=== PATIENT | male | born 1985 | race Caucasian/White ===

== ENCOUNTER 2021-02-16 08:57 | Emergency (ER) | payer OTHER, SELFPAY ==
[2021-02-16 09:16] VITALS: BP 135/86; PULSE 92; RESP 16; TEMP 37.3; O2SAT 98
--- NOTE | 2021-02-16 09:39 | ED.URI ---
HPI - URI/Sore Throat General Chief Complaint: Upper Respiratory Infection Stated Complaint: Flu Time Seen by Provider: 02/16/21 09:39 Source: patient and RN notes reviewed Mode of arrival: ambulatory Limitations: no limitations History of Present Illness HPI Narrative: 35-year-old male presents with concern for 1 week history of body aches, intermittent fever, cough, sore throat, eye and nasal drainage. He reports he has been vaccinated for Covid, has not had a flu vaccine. Patient has a tracheostomy that he has had from , denies any significant medical history. Reports he cannot take Benadryl because it dries out his throat too much. Reports he is taken NyQuil and Excedrin with little relief. Reports his kids and have had similar symptoms but they are getting better. MD elicited complaint: fever Related Data Allergies Allergy/AdvReac Type Severity Reaction Status Date / Time No Known Allergies Allergy Unknown Unverified 07/15/18 08:05 Review of Systems Review of Systems: CONSTITUTIONAL: Denies malaise, chills, sweats, or fever. EYES: Denies visual changes, redness, or discharge. ENT: Reports rhinorrhea, congestion, otalgia and sore throat. CARDIOVASCULAR: Denies chest pain, palpitations, or edema. RESPIRATORY: Reports cough. Denies dyspnea. GASTROINTESTINAL: Denies abdominal pain, nausea, vomiting, diarrhea SKIN: Denies rash or itching. MUSCULOSKELETAL: Denies myalgia. NEUROLOGIC: Denies headache. All systems reviewed & are unremarkable except as noted in HPI and below PMFSH Comments At time of signature, agree with nursing past medical, surgical, social and family history. There is no relevant family history pertinent to the presenting complaint Exam Narrative: GENERAL: Well-appearing, well-nourished, and in no acute distress. HEAD: Normocephalic EYES: PERRLA, conjunctivae clear ENT: Nares clear, turbinates edematous and erythematous, clear discharge. Mucous membranes moist. TM pearly hopkins with dull light reflex bilaterally; no tragal tenderness. Oropharynx erythematous without lesions. Tonsils enlarged and without exudate, no drooling, no hoarseness, no trismus, uvula midline. NECK: Supple. No lymphadenopathy CHEST: Clear to auscultation, breath sounds equal. No wheezing, rhonchi, rales, or stridor. No respiratory distress, speaks in full sentences. HEART: Regular rate and rhythm. No murmur heard. SKIN: Warm, dry, no rash. NEURO: Alert and oriented x3. PSYCH: Normal mood and affect Course Course Emergency Course: Patient is aware of diagnosis, understands and agrees to treatment plan. Anticipatory guidance given. Patient agrees to follow-up as directed and is aware of reasons to seek care at the emergency department. Portions of this record may have been created with voice recognition software Vital Signs Vital signs: Vital Signs Temperature 99.1 F 02/16/21 09:16 Pulse Rate 92 02/16/21 09:16 Respiratory Rate 16 02/16/21 09:16 Blood Pressure 135/86 02/16/21 09:16 Pulse Oximetry 98 02/16/21 09:16 Temperature 99.1 F 02/16/21 09:16 Pulse Rate 92 02/16/21 09:16 Respiratory Rate 16 02/16/21 09:16 Blood Pressure 135/86 02/16/21 09:16 Pulse Oximetry 98 02/16/21 09:16 Reviewed. Pt has been instructed to follow up with his primary care provider within the next week regarding his elevated blood pressure today. MDM - URI/Sore Throat MDM Narrative Medical decision making narrative: Differential diagnosis considered: [place] virus, strep pharyngitis, allergic rhinitis, upper respiratory tract infection, sinusitis, rhinosinusitis, nasopharyngitis. viral pharyngitis, otitis media, otitis externa, pneumonia, bronchitis, viral cough syndrome, viral syndrome, and influenza. Exam findings show no acute concerns or changes; patient is non-toxic appearing and is in no distress. Patient is appropriate for outpatient treatment and follow-up. Lab Data Attestation: I reviewed the patient's lab
== END 2021-02-16 10:02 | disposition home or self-care (01) ==
PROVIDERS: Emergency Provider Nurse Practitioner; PCP Internal Medicine
DX: J02.0 Streptococcal pharyngitis (principal); R05.9 Cough, unspecified; Z20.822 Contact with and (suspected) exposure to COVID-19
CPT/HCPCS: 87426; 87804; 87880; 99213; C9803; G0463

== ENCOUNTER 2023-04-26 15:20 | Emergency (ER) | payer OTHER, SELFPAY ==
[2023-04-26 15:30] VITALS: BP 132/84; PULSE 86; RESP 20; TEMP 37.3; O2SAT 99
[2023-04-26 15:40] VITALS: BP 132/84; PULSE 86; RESP 20; TEMP 37.3; O2SAT 99
--- NOTE | 2023-04-26 15:59 | ED.EYEPROB ---
HPI - Eye Problem General Chief complaint: Eye Problems Stated complaint: left eye stye Time Seen by Provider: 04/26/23 15:50 Source: patient, RN notes reviewed and old records reviewed Mode of arrival: ambulatory Limitations: no limitations History of Present Illness HPI Narrative: 38 year old male who presents to [facility] care with complaints of 2 styes to the left upper eye lid for the past 2 weeks with worsening symptoms and discomfort. Patient does wear contact lens and was instructed he will not be able to wear left contact while using prescribed eye medications till completed. Patient reports that he had similar area of styes on his left upper eyelid in December and received treatment chief complaint: other (2 styes on left upper eyelid) Onset (ago): week(s) (2) Location: left eye (upper eyelid) Treatments Prior to Arrival: other (warm compresses) Related Data Home Medications Medication Instructions Recorded Confirmed ferrous sulfate 325 mg (65 mg 325 mg PO DAILY 04/26/23 04/26/23 iron) tablet Allergies Allergy/AdvReac Type Severity Reaction Status Date / Time No Known Allergies Allergy Unknown Verified 04/26/23 15:39 Review of Systems Review of Systems: CONSTITUTIONAL: Denies fever, chills, or sweats. EYES: Denies visual changes. Reports redness with stye formation along left upper eyelid lash line, no redness to sclera or swelling of eye, patient denies any sharp pain or visual changes ENT: Denies rhinorrhea, congestion, sore throat, or otalgia. CARDIOVASCULAR: Denies chest pain, palpitations, or edema. RESPIRATORY: Denies cough or dyspnea. SKIN: Denies rash or itching. 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 There is no relevant family history pertinent to the presenting complaint Exam Narrative: GENERAL: Well-appearing, well-nourished, and in no acute distress. HEAD: Normocephalic, atraumatic. EYES: PERRLA and EOMI. Upper and lower eyelids unremarkable right eye Left upper eye lid has red styes X2 noted along upper eyelid lash line area no drainage. No periorbital cellulitis noted. Sclera and conjunctivae clear ENT: Nares clear, no rhinorrhea or epistaxis. Mucous membranes moist. 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 CHEST: Clear to auscultation. No respiratory distress. HEART: Regular rate and rhythm. No murmur heard. Normal peripheral pulses. SKIN: Warm, dry, no rash. NEURO: No focal deficits. Alert and oriented x3. Course Course Emergency Course: Patient is aware of diagnosis, understands and agrees to treatment plan. Anticipatory guidance given. Patient agrees to follow-up as directed and is aware of reasons to seek care at the emergency department. Portions of this record may have been created with voice recognition software Level of Care: Express Care Visit Vital Signs Vital signs: Vital Signs Temperature 37.3 C 04/26/23 15:30 Pulse Rate 86 04/26/23 15:30 Respiratory Rate 04/26/23 15:30 Blood Pressure 132/84 04/26/23 15:30 Pulse Oximetry 99 04/26/23 15:30 Oxygen Delivery Room Air 04/26/23 15:30 Temperature 37.3 C 04/26/23 15:40 Pulse Rate 86 04/26/23 15:40 Respiratory Rate 20 04/26/23 15:40 Blo
== END 2023-04-26 16:12 | disposition home or self-care (01) ==
PROVIDERS: Emergency Provider Registered Nurse
DX: H00.014 Hordeolum externum left upper eyelid (principal); Z93.0 Tracheostomy status
CPT/HCPCS: 99213; G0463

== ENCOUNTER 2023-06-20 18:09 | Emergency (ER) | payer OTHER, SELFPAY ==
[2023-06-20 18:20] VITALS: BP 145/97; PULSE 80; RESP 16; TEMP 36.6; O2SAT 99
--- NOTE | 2023-06-20 18:20 | ED.WOUNDLAC ---
HPI - Wound/Laceration General Chief Complaint: Wound/Laceration Stated Complaint: Right leg lac Time Seen by Provider: 06/20/23 18:20 Source: patient, RN notes reviewed and old records reviewed Mode of arrival: ambulatory Limitations: no limitations History of Present Illness HPI narrative: 38 year old male presents to [facility] care with complaints of scratching his right lateral lower leg on a piece of jose metal about 2 hours ago. Patient has superficial abrasion noted to his right lower leg with no bleeding noted. Patient is concerned since the metal was jose and his tetanus shot needs updated. Onset (ago): hour(s) (2 hours ago) Location: other Extremity Location: Right: lower leg (lateral aspect) Patient tetanus UTD: No Related Data Home Medications Medication Instructions Recorded Confirmed ferrous sulfate 325 mg (65 mg 325 mg PO DAILY 04/26/23 04/26/23 iron) tablet Allergies Allergy/AdvReac Type Severity Reaction Status Date / Time No Known Allergies Allergy Unknown Verified 04/26/23 15:39 Review of Systems Review of Systems: CONSTITUTIONAL: Denies fever, chills, or sweats. EYES: Denies visual changes, redness, or discharge. ENT: Denies rhinorrhea, congestion, sore throat, or otalgia. CARDIOVASCULAR: Denies chest pain, palpitations, or edema. RESPIRATORY: Denies cough or dyspnea. GASTROINTESTINAL: Denies abdominal pain, nausea, vomiting, or diarrhea. GENITOURINARY: Denies dysuria or hematuria. SKIN: Denies rash or itching.superficial abrasion to right lower leg after scrapping it on jose metal MUSCULOSKELETAL: Denies back pain, joint pain, or myalgia. NEUROLOGIC: Denies headache, numbness, or weakness. PSYCHIATRIC: Denies anxiety or depression. 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 There is no relevant family history pertinent to the presenting complaint Exam Narrative: GENERAL: Well-appearing, well-nourished, and in no acute distress. HEAD: Normocephalic, atraumatic. EYES: PERRLA and EOMI. ENT: Nares clear, no rhinorrhea or epistaxis. Mucous membranes moist. NECK: Supple. no swelling tracheostomy tube in place CHEST: Clear to auscultation. No respiratory distress.SAO2 99% on room air HEART: Regular rate and rhythm. No murmur heard. Normal peripheral pulses. ABDOMEN: Soft, nontender, nondistended, normal active bowel sounds. EXTREMITIES: Normal range of motion. No edema. SKIN: Warm, dry, no rash. superficial abrasion to right lower leg no active bleeding noted,cleansed with soap and saline bandaide applied NEURO: No focal deficits. Alert and oriented x3. Course Course Emergency Course: Patient is aware of diagnosis, understands and agrees to treatment plan.? Anticipatory guidance given.? Patient agrees to follow-up as directed and is aware of reasons to seek care at the emergency department. Portions of this record may have been created with voice recognition software Level of Care: Express Care Visit Vital Signs Vital signs: Vital Signs Temperature 36.6 C 06/20/23 18:20 Pulse Rate 80 06/20/23 18:20 Respiratory Rate 16 06/20/23 18:20 Blood Pressure 145/97 H 06/20/23 18:20 Pulse Oximetry 99 06/20/23 18:20 Oxygen Delivery Room Air 06/20/23 18:20 Temperature 36.6 C 06/20/23 18:20 Pulse Rate 80 06/20/23 18
[2023-06-20] MEDS: TETANUS,DIPHTHERIA,AC PERTUSSIS ADULT (0.5 ML) BOOSTRIX IM (18:47)
== END 2023-06-20 19:08 | disposition home or self-care (01) ==
PROVIDERS: Emergency Provider Registered Nurse
DX: S80.811A Abrasion, right lower leg, initial encounter (principal); W22.8XXA Striking against or struck by other objects, initial encounter; Z23 Encounter for immunization; Z93.0 Tracheostomy status
CPT/HCPCS: 90471; 90715; 99212; G0463

== ENCOUNTER 2023-07-17 14:06 | Emergency (ER) | payer OTHER, SELFPAY ==
--- NOTE | ~2023-07-17 | XR_ITS ---
EXAMINATION: XR lumbar spine 2-3V DATE: 07/17/2023 14:33 INDICATION: Mid back pain. TECHNIQUE: 3 views of lumbar spine were obtained. COMPARISON: None. FINDINGS: Bone alignment is normal. There are Schmorl's nodes at multiple levels. There is mildly dec reased disc height at L3-L4 and moderately decreased disc height at L5-S1. There is multilevel mild f acet joint osteoarthritis. IMPRESSION: 1. Moderate lower lumbar spondylosis. Reviewed, dictated and finalized at location E.
--- NOTE | 2023-07-17 14:23 | ED.BACK ---
HPI - Back Pain/Injury General Chief Complaint: Back Pain/Injury Stated Complaint: Back Pain History of Present Illness HPI Narrative: PATIENT PRESENTS WITH LOW BACK PAIN. PATIENT DENIES ANY NUMBNESS OR TINGLING NO SADDLE ANESTHESIA NO BOWEL OR BLADDER PROBLEMS. PATIENT DOES NOT RECALL ANY INJURY AND STATES HE IS NOT LIFT ANY HEAVY OBJECTS. Related Data Home Medications Medication Instructions Recorded Confirmed ferrous sulfate 325 mg (65 mg 325 mg PO DAILY 04/26/23 04/26/23 iron) tablet Allergies Allergy/AdvReac Type Severity Reaction Status Date / Time No Known Allergies Allergy Unknown Verified 07/17/23 14:20 Review of Systems Review of Systems: CONSTITUTIONAL: DENIES FEVER, CHILLS, OR SWEATS. EYES: DENIES VISUAL CHANGES, REDNESS, OR DISCHARGE. ENT: DENIES RHINORRHEA, CONGESTION, SORE THROAT, OR OTALGIA. CARDIOVASCULAR: DENIES CHEST PAIN, PALPITATIONS, OR EDEMA. RESPIRATORY: DENIES COUGH OR DYSPNEA. GASTROINTESTINAL: DENIES ABDOMINAL PAIN, NAUSEA, VOMITING, OR DIARRHEA. GENITOURINARY: DENIES DYSURIA OR HEMATURIA. SKIN: DENIES RASH OR ITCHING. MUSCULOSKELETAL: DENIES BACK PAIN, JOINT PAIN, OR MYALGIA. NEUROLOGIC: DENIES HEADACHE, NUMBNESS, OR WEAKNESS. PSYCHIATRIC: DENIES ANXIETY OR DEPRESSION. 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 HEAD: NORMOCEPHALIC, ATRAUMATIC. EYES: PERRLA AND EOMI. ENT: NARES CLEAR, NO RHINORRHEA OR EPISTAXIS. MUCOUS MEMBRANES MOIST. NECK: SUPPLE. CHEST: CLEAR TO AUSCULTATION. NO RESPIRATORY DISTRESS. HEART: REGULAR RATE AND RHYTHM. NO MURMUR HEARD. NORMAL PERIPHERAL PULSES. ABDOMEN: SOFT, NONTENDER, NONDISTENDED, NORMAL ACTIVE BOWEL SOUNDS. EXTREMITIES: NORMAL RANGE OF MOTION. NO EDEMA.SPINE MIDLINE. NO CURVATURE APPARENT. NO NOVERTEBRAL POINT SPECIFIC TENDERNESS. NO DEFORMITY. NO STEP-OFFS. NORMAL LE STRENGTH BILATERALLY. NORMAL LE SENSATION BILATERALLY. ABLE TO WALK ON TOES AND HEELS WITH NORMAL DORSIFLEXION AND PLANTAR FLEXION STRENGTH. NO WEAKNESS OBSERVED WITH GAIT. RIGHT PARASPINAL MUSCLE TENDERNESS. RIGHT SI JOINT TENDERNESS. FLEXION AND EXTENSION ROM NORMAL, ONLY SLIGHT LIMITATION. SKIN: WARM, DRY, NO RASH. NEURO: NO FOCAL DEFICITS. ALERT AND ORIENTED X3. MORENO COMA SCALE EYE OPENING: SPONTANEOUS 4 MORENO COMA SCALE MOTOR: OBEYS COMMANDS 6 MORENO COMA SCALE VERBAL: ORIENTED 5 MORENO COMA SCALE TOTAL 15 Course Course Level of Care: Express Care Visit MDM - Back Pain/Injury Imaging Data My impression: Moderate lower lumbar spondylosis. Radiologist's impression: Moderate lower lumbar spondylosis. Discharge Plan Discharge Clinical Impression: Strain of lumbar region Patient Disposition: Home, Self-Care Condition: Stable Instructions: Low Back Strain (ED), Lower Back Exercises (ED) Additional Instructions: ICE AND HEAT TO THE AREA FOR 20-30 MINUTES GENTLE STRETCHING EXERCISES GENTLE MASSAGE CAUTION WITH LIFTING, BENDING, STOOPING, TWISTING AVOID PUSHING, PULLING TAKE MUSCLE RELAXANTS DIRECTED--CAUTION DROWSINESS AND NO DRIVING OR ALCOHOL ANTI-INFLAMMATORY MEDICINE DIRECTED--TAKE WITH FOOD HE MAY TAKE THE MUSCLE RELAXANT AND ANTI-INFLAMMATORY AT THE SAME TIME FOLLOW-UP WITH YOUR PCP IF NOT IMPROVING IN 5-7 DAYS -IF YOU HAVE ANY WORSENING OF SYMPTOMS OR ANY OTHER CONCERNS PLEASE GO TO THE ED IMMEDIATELY. Prescriptions: New cyclobenzaprine 10 mg tablet 10 mg PO B
== END 2023-07-17 14:46 | disposition home or self-care (01) ==
PROVIDERS: Emergency Provider Nurse Practitioner Family
DX: S39.012A Strain of muscle, fascia and tendon of lower back, initial encounter (principal); X58.XXXA Exposure to other specified factors, initial encounter; Z93.0 Tracheostomy status
CPT/HCPCS: 72100; 99213; G0463

== ENCOUNTER 2024-07-06 15:11 | Emergency (ER) | payer OTHER, SELFPAY ==
--- OUTSIDE RECORDS SUMMARY | 2024-07-06 15:14 | XMS_ITS | Referral Summary ---
Author Organization [facility] Address [address] [place] [address] Care Team Providers Care Senior Ui Designer Name Role Phone Rossi Denney CLAUDY Primary Care Provider [phone] Allergies No known active allergies Medications lidocaine HCl-hydrocortiso n ac 3-0.5 % cream Apply to affected area 2-3 times daily 7 g 11 2 Active hydrocortisone (ANUSOL-HC) 2.5 % rectal cream Insert into the rectum 2 (two) times a day 30 g 3 2 Active sodium chloride 0.9% 0.9 % irrigationIndica tions:Use to flush Trach Use saline bullets 5-6 times daily for trach care as needed 450 mL 3 2 Active ferrous sulfate 325 mg (65 mg of elemental iron) tabletIndication s:Iron deficiency anemia, unspecified iron deficiency anemia type TAKE 1 TABLET BY MOUTH EVERY DAY WITH BREAKFAST 30 tablet 3 4 Active Active Problems Problem Noted Date Diagnosed Date Iron deficiency anemia 06/24/2021 Overview (06/24/2021): Added automatically from request for surgery [id number] Assessment & Plan (07/14/2021 7:08 AM CDT): HPI: Condition is Acute on chronic A&P: Discussed/ordered labs, encouraged healthy, low carbohydrate lifestyle and at least 150min/week of exercise, continue on ferrous sulfate 325mg onc daily, continue f/u with Dr. Joshua CONLEY and Dr. Salmeron hematology Rectal bleeding 06/23/2021 Assessment & Plan (07/14/2021 10:09 AM CDT): HPI: Condition is Improving, now only having blood sometimes with stools, not every time and only minimal amount, much improved from previous. A&P: Discussed/ordered labs, encouraged healthy, low carbohydrate lifestyle and at least 150min/week of exercise, GI is referring pt to hemorrhoid surgeon, continue to use anusol as needed Hemorrhoids 06/23/2021 Assessment & Plan (07/14/2021 7:09 AM CDT): HPI: Condition is improving, but not at goal A&P: Discussed/ordered labs, encouraged healthy, low carbohydrate lifestyle and at least 150min/week of exercise, GI is referring pt to hemorrhoid surgeon, continue to use anusol as needed Intermittent constipation 06/23/2021 Assessment & Plan (07/14/2021 7:08 AM CDT): HPI: Condition is stable A&P: Discussed/ordered labs, encouraged healthy, low carbohydrate lifestyle and at least 150min/week of exercise, continue on stool softeners as needed Overweight with body mass in dex (BMI) of 28 to 28.9 in adult 06/08/2021 Assessment & Plan (07/14/2021 7:09 AM CDT): HPI: Condition is stable goal BMI <30 A&P: Healthy, high-protein, lower carbohydrate, lower fat lifestyle and exercise for 150min/week recommended Substitutions: Recommend tracking everything you put in your mouth on an pina like D-Share or [employer] carries a zero net carb bread If you are looking for whole potatoes, like to use in soup or new potato shape/flavor, radishes are a great replacement If you are looking for mashed potatoes, riced cauliflower in the frozen bag section are a great replacement For pasta, try using zucchini noodles, lay them out on a cookie sheet and pat dry with a tea towel to try to remove as much moisture as possible. Heat your pasta sauce on the stove and put the noodles in for 30-45 seconds. If you leave them in much longer they will become mushy [place] and/or coconut flour instead of regular flour For pizza dough, try fathead pizza dough recipe online. To get a crispy crust, bake on one side for 8-12 min, then flip over and bake on the other side for 8-12 min, then put toppings on and bake until the cheese on top of pizza melts chaffles recipe online For ice cream, try the brand Enlightened To replace coffee creamer and make it low carb, use heavy creamer with sugar free Torani sweetener For chips, try Whisps or pork rinds For yogurt, try Two Good kenyan yogurt Use Pinterest for recipe ideas. Type in low carb... Assessment & Plan (06/08/2021 12:35 PM CDT): HPI: Condition is stable goal BMI <30 A&P: Healthy, high-protein, lower carbohydrate, lower fat lifestyle and exercise for 150min/week recommended Substitutions: Recommend tracking everything you put in your mouth on an pina like D-Share or [employer] carries a zero net carb bread If you are looking for whole potatoes, like to use in soup or new potato shape/flavor, radishes are a great replacement If you are looking for mashed potatoes, riced cauliflower in the frozen bag section are a great replacement For pasta, try using zucchini noodles, lay them out on a cookie sheet and pat dry with a tea towel to try to remove as much moisture as possible. Heat your pasta sauce on the stove and put the noodles in for 30-45 seconds. If you leave them in much longer they will become mushy [place]anda and/or coconut flour instead of regular flour For pizza dough, try fathead pizza dough recipe online. To get a crispy crust, bake on one side for 8-12 min, then flip over and bake on the other side for 8-12 min, then put toppings on and bake until the cheese on top of pizza melts chaffles recipe online For ice cream, try the brand Enlightened To replace coffee creamer and make it low carb, use heavy creamer with sugar free Torani sweetener For chips, try Whisps or pork rinds For yogurt, try Two Good kenyan yogurt Use Pinterest for recipe ideas. Type in low carb... Gastroesophageal reflux dise ase with esophagitis without hemorrhage 05/29/2021 Assessment & Plan (07/14/2021 7:09 AM CDT): HPI: Condition is stable encouraged healthy diet and exercise Avoid trigger foods including: carbonated beverages, caffeine, spicy, fried foods, tomatoes, cucumbers, mint, and acidic fruits/juices like orange/lemon/grapefruit. Avoid eating/drinking anything for at least 2 hours before bed. Sleep with bed propped. Discussed increased risk of cdif , bone loss and vit B12 deficiency with alf use of PPI with pt, would like to remain on medication at this time Tracheostomy present 05/28/2021 Overview (05/28/2021): subglottal stenosis. Has had this since . Assessment & Plan (07/14/2021 10:14 AM CDT): Continue current trach care Currently pt is purchasing all trach care items online. Found out that ins will cover them with a prescription. We will work on finding a company that will supply them. We will also have pt call ins company to see what company they use. Assessment & Plan (06/08/2021 12:40 PM CDT): Continue current trach care. Assessment & Plan (05/29/2021 8:37 AM BMET): Subglottal stenosis Trach since Assessment & Plan (05/28/2021 4:23 PM BMET): Pt is stable with trach, no erythema or drainage. Resolved Problems Problem Noted Date Diagnosed Date Resolved Date Anemia of unknown etiology 06/23/2021 0 07/14/2021 Fecal occult blood test positive 06/23/2021 07/14/2021 Other hemorrhoids 06/01/2021 07/14/2021 Assessment & Plan (06/08/2021 2:53 PM CDT): Hydrocortisone with lidocaine given Constipation 05/30/2021 05/31/2021 Assessment & Plan (05/30/2021 9:28 AM BMET): Patient complaining of constipation 05/30 Stimulant laxative due to GI bleed not considered Colace 100 mg b.i.d. p.r.n. Encourage p.o. hydration Monitor GI bleed 05/29/2021 07/14/2021 Assessment & Plan (06/08/2021 12:40 PM CDT): HPI: Condition is improving, but not at goal A&P: personally reviewed hospitalization reports including labs and procedures. Pt needs to be scheduled to see hematology Dr. Salmeron and to see Dr. Lewis's office for f/u for video capsule endoscopy. Pt will need to be on ferrous sulfate 325mg daily for at least the next 6 mo. Hgb/Hct ordered today. Assessment & Plan (05/30/2021 11:14 AM BMET): 36 y.o. M nonsmoker with PMHx of HTN , congenital subglottal stenosis with trach, hemorrhoids (x20 yrs) presents to [facility] ED on 05/28/2021 with bloody stool with worsening gross rectal BRBPR bleed x 1 week. Associated with rectal pain when defecating, lightheadedness, fatigue and headaches. Naproxen daily for MARQUEZ. 05/28 patient Hb 5.4. No leukocytosis, CMP within normal limits except ALT 56 mildly elevated. Iron panel revealed iron 11 L, TIBC WNL, transferrin 3 L. On admission 5.4 hemoglobin after receiving 2 units PRBC patient's hemoglobin currently 7.6. Hematocrit started at 18.2 on admission currently 24. 05/29/21 - procedures performed EGD revealed mild esophagitis only. Flex sig to splenic flexure only grade III nonbleeding roids Per gastroenterology -Plan for colonoscopy on 06/01/2021. Dulcolax tablets 05/30 and full prep 05/31 Check CBC, B12, Folate, Celiac serology will be checked 05/31 Acute headache 05/29/2021 07/14/2021 Assessment & Plan (06/08/2021 12:40 PM CDT): HPI: Condition is improving, but not at goal A&P: personally reviewed hospitalization reports including labs and procedures. Pt needs to be scheduled to see hematology Dr. Salmeron and to see Dr. Lewis's office for f/u for video capsule endoscopy. Pt will need to be on ferrous sulfate 325mg daily for at least the next 6 mo. Hgb/Hct ordered today. Avoid NSAIDs Assessment & Plan (05/29/2021 10:31 AM BMET): Pt has had persisting MARQUEZ x 1 week duration Hb below normal value Was taking NSAID every day Received 1 unit PRBC and will receive another per GI Prn compazine Acute blood loss anemia 06/20 Assessment & Plan (06/08/2021 12:39 PM CDT): HPI: Condition is improving, but not at goal A&P: personally reviewed hospitalization reports including labs and procedures. Pt needs to be scheduled to see hematology Dr. Salmeron and to see Dr. Lewis's office for f/u for video capsule endoscopy. Pt will need to be on ferrous sulfate 325mg daily for at least the next 6 mo. Hgb/Hct ordered today. Assessment & Plan (05/31/2021 8:08 AM CDT): Patient came in with 5.4 hemoglobin after receiving 2 units PRBC patient's hemoglobin currently > 7.0. Hematocrit started at 18.2 on admission currently > 24. Guaiac-positive GI bleed - flex sigmoid revealed no active bleed Responded well to 2 units PRBC Monitor Results for SANDRA GUEVARA ( ) as of 05/31/2021 08:01 Ref. Range 05/28/2021 18:59 05/29/2021 04:28 05/29/2021 17:00 05/31/2021 04:24 Hgb Latest Ref Range: 13.0 - 17.5 g/dL 5.4 (Critical) 6.6 (L) 7.6 (L) 7.8 (L) Hct Latest Ref Range: 38.9 - 50.3 % 18.2 (L) 22.7 (L) 24.0 (L) 26.1 (L) Immunizations Immunization Administration Dates Next Due DTP 08/20/1988, 5,1983,09/15,1983 Influenza, Quadrivalent, Destinee l Culture-based MDCK, Preservative Free, Antibiotic Free, Intramuscular 03/19/2021 MMR 09/19/1992,05/31/1984 OPV 11/29/1984, 4,1983,06/30 Td, adsorbed 10/25/1997 Social History Tobacco Use Types Packs/Day Years Used Date Smoking Tobacco: Never Smokeless Tobacco: Never AUDIT-C Answer Date Recorded Q1: How often do you have a drink containing alc ohol? 2-4 times a month 05/29/2021 Q2: How many drinks containi ng alcohol do you have on a typical day when you are drinking? 1 or 2 05/29/2021 Q3: How often do you have si x or more drinks on one occasion? Never 05/29/2021 PHQ-2 Answer Date Recorded PHQ-2 Total Score (If total score is 3 or more points, staff should administer the PHQ-9) 0 07/14/2021 Personal Safety Answer Date Recorded Getting School Help Needed Not on file 04/27 Sex and Gender Information Value Date Recorded Sex Assigned at Not on file Legal Sex Male 9:22 AM CDT Gender Identity Not on file Sexual Orientation Not on file Last Filed Vital Signs Vital Sign Reading Time Taken Comments Blood Pressure 140/82 01/04/2022 3:07 PM CDT Pulse 78 01/04/2022 3:07 PM CDT Temperature 36.9 C (98.4 F) 01/04/2022 3:07 PM CDT Respiratory Rate 20 01/04/2022 3:07 PM CDT Oxygen Saturation 97% 01/04/2022 3:07 PM CDT Inhaled Oxygen Concentration - - Weight 85.1 kg (187 lb 9.6 oz) 01/04/2022 3:07 P M CDT Height 170.2 cm (5' 7 ) 01/04/2022 3:07 PM CDT Body Mass Index 29.38 01/04/2022 3:07 PM CDT Plan of Treatment Not on file [place] [employer] [place] Advance Directives For more information, please contact: [phone] * Full Code (Latest Code Status on File) Date Activated Date Inactivated Comments 06/01/2021 1:43 PM 06/01/2021 9:24 PM * Full Code Date Activated Date Inactivated Comments 05/29/2021 10:57 AM 06/01/2021 1:43 PM * Full Code Date Activated Date Inactivated Comments 05/29/2021 12:09 AM 05/29/2021 10:57 AM Care Teams Senior Ui Designer Relationship Specialty Start Date End Date Rossi Denney NP PCP - General Family Medicine 05/28/21
--- OUTSIDE RECORDS SUMMARY | 2024-07-06 15:14 | XMS_ITS | Clinical Summary ---
Author Organization [facility] Address [address] [place] [address] Care Team Providers Care Administrative Volunteer Name Role Phone Rossi Denney CLAUDY Primary Care Provider [phone]- [phone] Allergies No known active allergies Medications lidocaine [...] (06/24/2021): Added automatically from request for surgery [id number] Assessment & Plan (07/14/2021 7:08 AM CDT): [...] in your mouth on an pina like [employer] or [employer] carries a zero net carb bread [...] in much longer they will become mushy [place] and/or coconut flour instead of regular flour [...] pork rinds For yogurt, try Two Good canadian yogurt Use Pinterest for recipe ideas. Type in low carb... Assessment & Plan (06/08/2021 12:35 PM CDT): HPI: Condition is stable goal BMI <30 A&P: Healthy, high-protein, lower carbohydrate, lower fat lifestyle and exercise for 150min/week recommended Substitutions: Recommend tracking everything you put in your mouth on an pina like [employer] or [employer] carries a zero net carb bread [...] in much longer they will become mushy [place] and/or coconut flour instead of regular flour [...] pork rinds For yogurt, try Two Good canadian yogurt Use Pinterest for recipe ideas. Type [...] bone loss and vit B12 deficiency with fci use of PPI with pt, would like [...] care. Assessment & Plan (05/29/2021 8:37 AM WIRE PREPARATION WORKER): Subglottal stenosis Trach since Assessment & Plan (05/28/2021 4:23 PM WIRE PREPARATION WORKER): Pt is stable with trach, no erythema or drainage. Resolved Problems Problem Noted Date Diagnosed Date Resolved Date Anemia of unknown etiology 06/23/2021 0 07/14/2021 Fecal occult blood test positive 06/23/2021 07/14/2021 Other hemorrhoids 06/01/2021 07/14/2021 Assessment & Plan (06/08/2021 2:53 PM CDT): Hydrocortisone with lidocaine given Constipation 05/30/2021 05/31/2021 Assessment & Plan (05/30/2021 9:28 AM WIRE PREPARATION WORKER): Patient complaining of constipation 05/30 Stimulant laxative [...] today. Assessment & Plan (05/30/2021 11:14 AM WIRE PREPARATION WORKER): 36 y.o. M nonsmoker with PMHx of HTN , congenital subglottal stenosis with trach, hemorrhoids (x20 yrs) presents to [facility] ED on 05/28/2021 with bloody stool [...] NSAIDs Assessment & Plan (05/29/2021 10:31 AM WIRE PREPARATION WORKER): Pt has had persisting MARQUEZ x 1 [...] 09/19/1992,05/31/1984 OPV 11/29/1984, 4,1983,06/30 Td, adsorbed 10/25/1997 Surgical History Surgery Date Site/Laterality Comments TRACHEOSTOMY TRACHEOSTOMY Medical History Medical History Date Comments Subglottic stenosis Acute blood loss anemia Acute headache 05/29/2021 GI bleed 05/29/2021 Family History Medical History Relation Name Comments Hypertension Mother Relation Name Status Comments Mother Social History Tobacco Use Types Packs/Day Years [...] on file Sexual Orientation Not on file Obstetrics History Last Filed Vital Signs Vital Sign Reading [...] 01/04/2022 3:07 PM CDT Plan of Treatment Health Maintenance Due Date Last Done Comments Hepatitis C Screening 1983 Varicella Vaccines (1 of 2 - 13+ 2-dose series) 02/27/1996 DTaP/Tdap/Td Vaccine (6 - Tdap) 10/26/1997 10/25/1997, 08/20/1988, 11/29/1984, Additional history exists Hepatitis B Screening 2001 Regular Well Visit/Exam 18-64 2001 Depression Screening 07/14/2022 07/14/2021, 06/08/2021, 05/28/2021, Additional history exists Covid-19 Vaccine (2023- season) 2023 12/22/2020, 12/01/2020 Influenza Vaccine Completed 01/07/2024, 03/19/2021 HPV Vaccines Aged Out No longer eligi ble based on patient's age to complete this topic Pneumococcal vaccine <65 Aged Out No longer eligible based on patient's age to complete this topic Insurance [facility] [place] [facility] Advance Directives For more information, please contact: [phone] * Full Code (Latest Code Status on File) Date Activated Date Inactivated Comments 06/01/2021 1:43 PM 06/01/2021 9:24 PM * Full Code Date Activated Date Inactivated Comments 05/29/2021 10:57 AM 06/01/2021 1:43 PM * Full Code Date Activated Date Inactivated Comments 05/29/2021 12:09 AM 05/29/2021 10:57 AM Care Teams Administrative Volunteer Relationship Specialty Start Date End Date Rossi Denney NP PCP - General Family Medicine 05/28/21
[2024-07-06 15:19] VITALS: BP 142/90; PULSE 86; RESP 20; TEMP 36.8; O2SAT 99
--- NOTE | 2024-07-06 15:30 | ED_ITS ---
HPI - URI/Sore Throat General Chief Complaint: Upper Respiratory Infection Stated Complaint: Sore Throat/Headache Time Seen by Provider: 07/06/24 15:30 Source: patient, RN notes reviewed and old records reviewed Mode of arrival: ambulatory Limitations: no limitations History of Present Illness HPI Narrative: 39 year old male presents to [facility] care with complaints of sore throat and headache pain for the past 2 days. Patient reports that his daughter just tested positive for strep throat 2 days ago. Patient reports that he has been taking Tylenol for his discomfort.Patient has noted post nasal drainage, no acute cough noted. denies any known fevers. Patient does have permanent trach from subepiglottic stenosis since . MD elicited complaint: sore throat and other (headache) Pertinent past history: other (has trach) Onset (ago): day(s) (2) Consistency: constant Pain scale (0-10): 4 Description of mucous: clear Able to tolerate fluids by mouth: Yes Treatments prior to arrival: acetaminophen Related Data Home Medications ?Medication ?Instructions ?Recorded ?Confirmed ?Last Taken ?Type ferrous sulfate 325 mg (65 mg 325 mg PO DAILY 04/26/23 04/26/23 Unknown History iron) tablet Allergies Allergy/AdvReac Type Severity Reaction Status Date / Time No Known Allergies Allergy Unknown Verified 07/06/24 15:21 Review of Systems Review of Systems: CONSTITUTIONAL: Denies malaise, chills, sweats, or fever. EYES: Denies visual changes, redness, or discharge. ENT: Reports rhinorrhea, congestion, no sinus pain, no otalgia and positive for sore throat. CARDIOVASCULAR: Denies chest pain, palpitations, or edema. RESPIRATORY: Reports no acute cough.? Denies dyspnea. GASTROINTESTINAL: Denies abdominal pain, nausea, vomiting, diarrhea SKIN: Denies rash or itching. MUSCULOSKELETAL: Denies myalgia. NEUROLOGIC: Reports headache. 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 There is no relevant family history pertinent to the presenting complaint Exam Narrative: GENERAL: Well-appearing, well-nourished, and in no acute distress. HEAD: Normocephalic EYES: PERRLA, conjunctivae clear ENT: Nares clear, turbinates edematous and erythematous, clear discharge. Mucous membranes moist. TM [place] with dull light reflex bilaterally; no tragal tenderness. Oropharynx erythematous without lesions. Tonsils not enlarged and without exudate, no drooling, no hoarseness, no trismus, uvula midline.post nasal drainage NECK: Supple. No lymphadenopathy CHEST: Clear to auscultation, breath sounds equal. No wheezing, rhonchi, rales, or stridor. No respiratory distress, speaks in full sentences. has permanent trach SAO2 99% on room air HEART: Regular rate and rhythm. No murmur heard. SKIN: Warm, dry, no rash. NEURO: Alert and oriented x3. PSYCH: Normal mood and affect Course Course Emergency Course: Patient is aware of diagnosis, understands and agrees to treatment plan.? Anticipatory guidance given.? Patient agrees to follow-up as directed and is aware of reasons to seek care at the emergency department. Portions of this record may have been created with voice recognition software Level of Care: Express Care Visit Vital Signs Vital signs: Vital Signs Temperature 36.8 C 07/06/24 15:19 Pulse Rate 86 07/06/24 15:19 Respiratory Rate 20 07/06/24 15:19 Blood Pressure 142/90 H 07/06/24 15:19 Pulse Oximetry 99 07/06/24 15:19 Oxygen Delivery Room Air 07/06/24 15:19 Temperature 36.8 C 07/06/24 15:19 Pulse Rate 86 07/06/24 15:19 Respiratory Rate 20 07/06/24 15:19 Blood Pressure 142/90 H 07/06/24 15:19 Pulse Oximetry 99 07/06/24 15:19 Oxygen Delivery Room Air 07/06/24 15:19 Reviewed MDM - URI/Sore Throat MDM Narrative Medical decision making narrative: Differential diagnosis considered: [place] virus, strep pharyngitis, allergic rhinitis, upper respiratory tract infection, sinusitis, rhinosinusitis, nasopharyngitis. viral pharyngitis, otitis media, otitis externa, pneumonia, bronchitis, viral cough syndrome, viral syndrome, and influenza.? Exam findings show no acute concerns or changes; patient is non-toxic appearing and is in no distress.? Patient is appropriate for outpatient treatment and follow-up. Differential Diagnosis Differential diagnosis: Likely upper respiratory infection, viral infection, pharyngitis and other (step pharyngitis, headache) Medical Records Attestation: I reviewed the patient's medical records. Lab Data Attestation: I reviewed the patient's lab results. Lab results narrative: strep screen negative, culture sent Labs: Lab Results 07/06/24 Range/Units 15:48 POC Grp A Strep Screen Negative (Negative) Critical Care Time Critical Care Time Critical Care Time: No Discharge Plan Discharge Clinical Impression: Exposure to strep throat Pharyngitis Qualifiers: Pharyngitis/tonsillitis etiology: unspecified etiology Qualified Code(s): J02.9 - Acute pharyngitis, unspecified Patient Disposition: Home Condition: Stable Instructions: Antibiotic Form, Pharyngitis (ED) Additional Instructions: Throw away your current toothbrush and begin using a new toothbrush in 48 hours in order to prevent re-infection. Sanitize all reusable water bottles . Do not share items with others. Salt water gargles may alleviate some of the throat discomfort. You can take Tylenol or ibuprofen per the package instructions for pain/fever. Your strep test today was negative. A throat culture will be sent to the laboratory for further testing. IF the test is positive, you will receive a phone call within 48 hours and an appropriate antibiotic will be initiated at that time. Monitor for any fevers Zyrtec or Claritin or Kindra daily Patient Language: Turkish Prescriptions: No Action ferrous sulfate 325 mg (65 mg iron) tablet 325 mg PO DAILY cyclobenzaprine 10 mg tablet 10 mg PO BID PRN (Reason: muscle spasm) Qty: 10 0RF prednisone 20 mg tablet 40 mg PO DAILY 5 Days Qty: 10 0RF Follow-up/Referrals: PHYSICIAN,DIRECTOR OF RESIDENTIAL SERVICES [Primary Care Provider] - Time of Disposition: 15:56 Quality [place] Coma Scale Eyes: Open Verbal: Oriented and Alert Motor: Follows Commands [place] Coma Total Score: 15
[2024-07-06 15:49] LABS: EDSTREPNEGPOS1 Negative (Negative)
== END 2024-07-06 16:00 | disposition home or self-care (01) ==
PROVIDERS: Emergency Provider Registered Nurse
DX: J02.9 Acute pharyngitis, unspecified (principal); Z20.818 Contact with and (suspected) exposure to other bacterial communicable diseases; Q31.1 Congenital subglottic stenosis; Z93.0 Tracheostomy status
CPT/HCPCS: 87081; 87880; 99213; G0463